=== PATIENT | male | born 1995 | race Caucasian/White ===

== ENCOUNTER 2017-01-10 12:15 | Emergency (ER) | payer OTHER, MEDICAID ==
[2017-01-10] MEDS ORDERED: DEXAMETHASONE 10 MG/ML VIAL PO STA (13:24)
[2017-01-10] MEDS ORDERED: DEXAMETHASONE 10 MG/ML VIAL ONE (13:28)
[2017-01-10] MEDS ORDERED: CHERRY SYRUP 10 ML UDC PO ONE (13:28)
== END 2017-01-10 14:18 | disposition home or self-care (01) ==
DX: S39.012A Strain of muscle, fascia and tendon of lower back, initial encounter (principal); X50.0XXA Overexertion from strenuous movement or load, initial encounter; X50.3XXA Overexertion from repetitive movements, initial encounter; Y93.89 Activity, other specified; Y92.814 Boat as the place of occurrence of the external cause; Y99.0 Civilian activity done for income or pay
CPT/HCPCS: 99283; A9270

== ENCOUNTER 2017-04-17 13:06 | Outpatient (CLI) | payer OTHER, MEDICAID | END 2017-04-17 13:07 | disposition critical access hospital (66) | LOC: EMS 13:06 | PROVIDERS: ATTEND Surgery | DX: M25.572 Pain in left ankle and joints of left foot (principal); S51.812A Laceration without foreign body of left forearm, initial encounter; W17.89XA Other fall from one level to another, initial encounter; Y93.H3 Activity, building and construction; Y92.69 Other specified industrial and construction area as the place of occurrence of the external cause | CPT/HCPCS: A0425; A0429 ==

== ENCOUNTER 2017-04-17 13:18 | Emergency (ER) | payer OTHER, MEDICAID ==
[2017-04-17] MEDS ORDERED: HYDROmorphone 1 MG/ML SYRINGE IM STA (13:26)
[2017-04-17] MEDS ORDERED: ONDANSETRON ODT 4 MG TABLET TL STA (13:27)
--- NOTE | 2017-04-17 13:28 | ED Physician Documentation ---
PD HPI Fall - Stated complaint Stated Complaint: L ANKLE INJURY - Chief complaint Chief Complaint: Trauma Ext - History obtained from History obtained from: Patient, EMS - History of Present Illness Mechanism of injury: Slipped, Lost balance Fall distance: 5 to 10ft (fell off roof and landed onto both feet, left more. Pain in left ankle, and unable to bear weight. Some pain in proximal fibular area and enroute to ED has also some low back pain. Did not strike head/chest.) Where injury occurred: Work Timing - onset: Today (just [employer]) Associated symptoms: No: LOC, AMS, Neck pain Worsens with: Movement, Palpation Similar symptoms before: Has not had sx before Recently seen: Not recently seen Review of Systems Nose: denies: Congestion Cardiac: denies: Chest pain / pressure Respiratory: denies: Dyspnea, Cough GI: denies: Abdominal Pain, Nausea, Vomiting Skin: denies: Abrasion (s), Laceration (s) Musculoskeletal: denies: Neck pain Neurologic: denies: Focal weakness, Numbness PD PAST MEDICAL HISTORY - Past Medical History Cardiovascular: None Musculoskeletal: None - Past Surgical History Past Surgical History: No - Present Medications Home Medications: Ambulatory Orders Medication Instructions Recorded Confirmed HYDROcod/ACETAM 5/325 [[employer] 5/325] 1 tab PO Q6H PRN #20 tablet 04/17/17 Ibuprofen [Motrin] 600 mg PO TID #30 tab 04/17/17 Methocarbamol [Robaxin] 500 mg PO Q6H PRN #25 tablet 04/17/17 - Allergies Allergies/Adverse Reactions: Allergies Allergy/AdvReac Type Severity Reaction Status Date / Time No Known Drug Allergies Allergy Verified 04/17/17 13:23 - Social History Does the pt smoke?: No Smoking Status: Never smoker Does the pt drink ETOH?: No Does the pt have substance abuse?: No - Immunizations Immunizations are current?: Yes PD ED PE NORMAL - Vitals Vital signs reviewed: Yes - General General: Alert and oriented X 3, Well developed/nourished, Other (appears in some pain due to ankle) - HEENT HEENT: Atraumatic - Neck Neck: Supple, no meningeal sign, No bony TTP, No adenopathy - Cardiac Cardiac: RRR, No murmur - Respiratory Respiratory: Clear bilaterally - Abdomen Abdomen: Soft, Non tender - Back Back: No CVA TTP, No spinal TTP (but some tenderness in lateral lumbar muscles) - Derm Derm: Normal color, Warm and dry - Extremities Extremities: No deformity, Other (right leg is good. Left ankle with tenderness around the ankle, with minimal swelling and no deformity. Good color and cap refill. Proximal fibula has some mild tenderness. Knee itself is not tender. ) - Neuro Neuro: Alert and oriented X 3, No motor deficit, No sensory deficit, Normal speech Results - Vitals Vitals: Vital Signs - 24 hr 04/17/17 04/17/17 13:21 15:55 Temperature 36.8 C Heart Rate 53 L 60 Respiratory 16 14 Rate Blood Pressure 112/48 L 118/63 O2 Saturation 100 98 Oxygen O2 Source Room air - Rads (name of study) ankle Radiology: Prelim report reviewed (no fracture), EMP read contemporaneously ( consider slight irregularity talus body on AP view) lumbar Radiology: Prelim report reviewed (no fractures) left tib/fib Radiology: Prelim report reviewed (no fractures) PD MEDICAL DECISION MAKING - ED course Complexity details: reviewed results (no noted fractures on plain film. He is hurting enough, with the mechanism of it, that I would consider occult fracture such as talar dome. Initial treatment with cast boot and crutches, and follow up Ortho in a week. This would be right for ligament and fracture. If persisting pain, they might consider CT or MRI. ), considered differential, d/w patient Departure - Departure Disposition: 01 Home, Self Care Clinical Impression: Fall from roof as cause of accidental injury Ankle sprain Qualifiers: Encounter type: initial encounter Involved ligament of ankle: other ligament Laterality: left Qualified Code(s): S93.492A - Sprain of other ligament of left ankle, initial encounter Lumbar strain Qualifiers: Encounter type: initial encounter Qualified Code(s): S39.012A - Strain of muscle, fascia and tendon of lower back, initial encounter Forearm laceration Qualifiers: Encounter type: initial encounter Laterality: left Qualified Code(s): S51.812A - Laceration without foreign body of left forearm, initial encounter Condition: Stable Record reviewed to determine appropriate education?: Yes Instructions: ED Sprain Ankle W X Ray, ED Sprain Strain Lumbar Follow-Up: Davis Falcon MD [Provider Admit Priv/Credential] - Prescriptions: Ibuprofen [Motrin] 600 mg PO TID #30 tab HYDROcod/ACETAM 5/325 [[employer] 5/325] 1 tab PO Q6H PRN #20 tablet PRN Reason: Pain Methocarbamol [Robaxin] 500 mg PO Q6H PRN #25 tablet PRN Reason: Spasms Comments: For the arm laceration, keep it clean and dry and allow the Steri-Strips to fall off on their own after several days. Recheck if signs of infection. For the back, use heat and gentle range of motion to reduce stiffness. Use methocarbamol if needed for spasms and pain. For injuries in general, use ibuprofen 3 times a day for the next week and add Tylenol or hydrocodone if needed for pain. For the ankle injury, there is no obvious fractures on plain x -ray. Presume it is sprained well. Follow-up with orthopedics in 5-7 days, call for an appointment. Minimal to no weightbearing with the ankles brace on and use crutches to help with comfort. Recheck sooner if worsening, in particular significant swelling of the ankle, numbness or tingling in the toes for any signs of swelling or discoloration in the toes or foot. Forms: Activity restrictions Discharge Date/Time: 04/17/17 15:55
[2017-04-17] MEDS ORDERED: HYDROmorphone 1 MG/ML SYRINGE ONE (13:33)
[2017-04-17] MEDS ORDERED: ONDANSETRON ODT 4 MG TABLET ONE (13:34)
[2017-04-17] MEDS ORDERED: IBUPROFEN 600 MG TABLET PO STA (14:49)
[2017-04-17] MEDS ORDERED: ACETAMINOPHEN 325 MG TABLET PO STA (14:50)
[2017-04-17] MEDS ORDERED: IBUPROFEN 600 MG TABLET PO ONE (14:54)
[2017-04-17] MEDS ORDERED: ACETAMINOPHEN 325 MG TABLET PO ONE (14:54)
--- NOTE | 2017-04-17 15:14 | XRAY Preliminary Report ---
Exam: XR Lumbar Spine 2 View IMPRESSION: Normal lumbar spine radiography. [facility] SITE ID: [id number]
--- NOTE | 2017-04-17 15:15 | XRAY Preliminary Report ---
Exam: XR Ankle 3 View LT IMPRESSION: Normal ankle radiography. [facility] SITE ID: [id number]
--- NOTE | 2017-04-17 15:16 | XRAY Preliminary Report ---
Exam: XR Tib/Fib LT IMPRESSION: Normal tibia/fibula radiography. [facility] SITE ID: [id number]
--- NOTE | 2017-04-17 15:17 | XRAY Report ---
EXAM: LUMBOSACRAL SPINE RADIOGRAPHY EXAM DATE: 04/17/2017 02:18 PM. CLINICAL HISTORY: Fall. Landed on feet. Low back pain too. COMPARISONS: None. TECHNIQUE: 2 views. FINDINGS: Alignment: Normal. No spondylolisthesis or scoliosis. Bones: Five [id number] lumbar vertebral bodies are present. No fractures or bone lesions. Disks: Normal. Disk heights are maintained. Facets: No degenerative changes. Sacroiliac Joints: Unremarkable. Soft Tissues: Normal. The visualized bowel gas pattern is normal. IMPRESSION: Normal lumbar spine radiography. [facility] Referring Provider Line: [phone] SITE ID: [id number]
--- NOTE | 2017-04-17 15:18 | XRAY Report ---
EXAM: LEFT ANKLE RADIOGRAPHY EXAM DATE: 04/17/2017 02:18 PM. CLINICAL HISTORY: Fall. Landed on feet. COMPARISON: None. TECHNIQUE: 4 views. FINDINGS: Bones: Normal. No fractures or bone lesions. Joints: Normal. No effusion. No subluxations. The ankle mortise is normally aligned. Soft Tissues: Normal. No soft tissue swelling. IMPRESSION: Normal ankle radiography. [facility] Referring Provider Line: [phone] SITE ID: [id number]
--- NOTE | 2017-04-17 15:19 | XRAY Report ---
EXAM: LEFT TIBIA/FIBULA RADIOGRAPHY EXAM DATE: 04/17/2017 02:18 PM. CLINICAL HISTORY: Fall. Landed on feet. COMPARISON: None. TECHNIQUE: 2 views. FINDINGS: Bones: Normal. No fracture or bone lesion. Joints: The visualized knee and ankle joints are normal. No effusions. Soft Tissues: Normal. No soft tissue swelling. IMPRESSION: Normal tibia/fibula radiography. [facility] Referring Provider Line: [phone] SITE ID: [id number]
[2017-04-17 16:37] VITALS: BP 118/63
== END 2017-04-17 15:55 | disposition home or self-care (01) ==
LOC: EDUNIT# → ED 13:18
DX: S93.492A Sprain of other ligament of left ankle, initial encounter (principal); S39.012A Strain of muscle, fascia and tendon of lower back, initial encounter; S51.812A Laceration without foreign body of left forearm, initial encounter; W13.2XXA Fall from, out of or through roof, initial encounter; Y92.89 Other specified places as the place of occurrence of the external cause; Y99.0 Civilian activity done for income or pay
CPT/HCPCS: 1040M; 72100; 73590; 73610; 96372; 99283; A9270; J1170; Q0162